=== PATIENT | male | born 1945 | race Caucasian/White ===

== ENCOUNTER 2017-06-10 17:37 | Observation (INO) | payer OTHER ==
--- NOTE | 2017-06-10 17:49 | EDPHY ---
H & P Stated Complaint: fall from standing x 3 today, fever, on chemo and warfarin Time Seen by Provider: 06/10/17 17:48 - Medical/Surgical History Hx Asthma: No Hx Chronic Respiratory Disease: No Hx Diabetes: No Hx Cardiac Disease: No Hx Renal Disease: No Hx Cirrhosis: No Hx Alcoholism: No Hx HIV/AIDS: No Hx Splenectomy or Spleen Trauma: No Other PMH: CLL. hyperlipidemia. hemothorax 03/30 - Social History Smoking Status: Never smoked Constitutional: Initial Vital Signs Temperature (C) 38.3 C 06/10/17 17:42 Heart Rate 90 06/10/17 17:42 Respiratory Rate 18 06/10/17 17:42 Blood Pressure 135/63 H 06/10/17 17:42 O2 Sat (%) 93 06/10/17 17:42 O2 Delivery Mode Room Air Allergies/Adverse Reactions: No Known Allergies Allergy (Verified 11/03/15 20:56) Home Medications: Medication Instructions Recorded Acetaminophen [Tylenol ES 500 mg 500 - 1,000 mg PO Q6 PRN 06/10/17 (*)] Allopurinol [Allopurinol 300 MG 300 mg PO DAILY18 06/10/17 (RX)] Atorvastatin Calcium [Lipitor 10 10 mg PO DAILY 06/10/17 mg (*)] Bendamustine HCl [Bendeka (*)] 150 mg IV Q28D 06/10/17 Carboxymethylcellulose 1% [Refresh 1 tonia EACHEYE DAILY PRN 06/10/17 Celluvisc (*)] Dexamethasone in 0.9 % Sod Chl 10 mg IV Q28D 06/10/17 [Dexamethasone 10 mg/50 ml-Ns] Lidocaine/Prilocaine [Emla Cream 1 tonia TP PRN PRN 06/10/17 (RX)] Oxymetazoline HCl [Afrin Nasal 1 spray EACHNARE HS 06/10/17 [place] (OTC)] Polyethylene Glycol 3350 [Miralax 17 gm PO DAILY PRN 06/10/17 17 gm (*)] Warfarin Sodium [Coumadin 2MG (*)] 1 mg PO DAILY20 06/10/17 Warfarin Sodium [Coumadin 5MG (*)] 5 mg PO DAILY20 06/10/17 riTUXimab [Rituxan] 600 mg IV Q28D 06/10/17 Medical Decision Making - Diagnostics Imaging Results: Imaging Impressions Chest X-Ray 06/10/17 17:54 Impression: 1. A fever source is not identified. 2. See above report for additional findings. Results called and discussed with Hi Hopkins MD on June 10, 2017 at 1920 hours. Imaging: Discussed imaging studies w/ piano instructor Radiologist, I viewed and interpreted images myself ED Course/Re-evaluation: CHIEF COMPLAINT: Multiple falls, fever HISTORY OF PRESENT ILLNESS: The patient is an anticoagulated (Warfarin), immunocompromised 71 y/o male with a history of chronic lymphocytic leukemia complaining of multiple falls and a fever today. He recently finished his first round of a 3-day course of chemotherapy 8 days ago. On , 3 days ago, he saw his doctor who told him to stop taking Zofran and Compazine. Today he started to feel better and began to walk more than usual. While walking back from the mail, he fell 3 times. He felt like he "couldn't control his legs or balance" similar to the sensation of "running down a hill". Denies feeling weak, but felt more uncoordinated. He was able to walk back inside and began to feel sweaty. He took his temperature at home which was 100.8 degrees. Denies balance or coordination problems yesterday. Denies loss of consciousness, weakness, numbness, nausea, vomiting, chest pain, shortness of breath, recent travel. His INR is supposed to be 2-3. Followed by Dr. Reynolds, oncologist ([phone]) REVIEW OF SYSTEMS: A 10 point review of systems was performed and is negative with the exception of the elements mentioned in the history of present illness. PHYSICAL EXAM: HR, BP, O2 Sat, RR. Temp noted General Appearance: Alert, well hydrated, appropriate, and non-toxic appearing. Head: Atraumatic without scalp tenderness or obvious injury Eyes: Pupils equal, round, reactive to light and accommodation, EOMI, no trauma , no injection. Ears: Clear bilaterally, no perforation, normal landmarks Nose: Atraumatic, no rhinorrhea, clear. Throat: There is no erythema or exudates, no lesions, normal tonsils, mucus membranes moist. Neck: Supple, nontender, no lymphadenopathy. Respiratory: No retractions, no distress, no wheezes, and no accessory muscle use. Lungs are clear to auscultation bilaterally. Cardiovascular: Regular rate and rhythm, no murmurs, rubs, or gallops. Good capillary refill all extremities. Gastrointestinal: Abdomen is soft, nontender, non-distended, no masses, no rebound, no guarding, no peritoneal signs. Musculoskeletal: Normal active ROM of all extremities, atraumatic. Neurological: Alert, appropriate, and interactive. The patient has normal DTRs and non-focal cranial nerves, motor, sensory, and cerebellar exam. Skin: No rashes, good turgor, no nodules on palpation. Past medical history: Chronic lymphocytic leukemia, hyperlipidemia, hemothorax and pneumothorax (March 2017) Past surgical history: Denies Family history: Denies Social history: at bedside, lives in [place], retired DIAGNOSTICS/PROCEDURES/CRITICAL CARE TIME: Chest X-ray: Negative Brain MRI w/ and w/o contrast: Negative DIFFERENTIAL DIAGNOSIS: The differential diagnosis for the patient's fever and falls included but was not limited to neutropenic fever, immunocompromised fever, syncope, hypoglycemia , neurogenic causes, pneumonia, urinary tract infection, viral syndrome, meningitis, and sepsis. MEDICAL DECISION MAKING: The patient is an anticoagulated (Warfarin), immunocompromised 71 y/o male with a history of chronic lymphocytic leukemia presenting with multiple falls today and a fever of 38.3 degrees. Labs, chest x-ray, and brain MRI ordered. 2gm Maxipime administered. Patient will most likely need to be admitted for a neutropenic fever; patient and his are comfortable with this plan. 1828: Consulted with hospitalist service, Dr. Pineda accepts admission of this patient. 1913: Patient's sodium is 129. 1919: Spoke with radiologist regarding patient's negative chest x-ray. Brain MRI still pending. 1928: Consulted with Dr. Reynolds, patient's oncologist, regarding this patient. He agrees with my plan for admission. 2127: Spoke with Dr. Leija, radiologist, who reports that the patient's Brain MRI is negative. Patient has been sent to the floor. - Data Points Laboratory Results: Laboratory Results 06/10/17 18:10 06/10/17 18:10 06/10/17 06/10/17 06/10/17 18:25 18:10 18:10 WBC 5.55 10^3/uL 10^3/uL (3.80-9.50) RBC 3.94 10^6/uL L 10^6/uL (4.40-6.38) Hgb 11.4 g/dL L g/dL (13.7-17.5) Hct 33.2 % L % (40.0-51.0) MCV 84.3 fL fL (81.5-99.8) MCH 28.9 pg pg (27.9-34.1) MCHC 34.3 g/dL g/dL (32.4-36.7) RDW 19.3 % H % (11.5-15.2) Plt Count 155 10^3/uL 10^3/uL (150-400) MPV 10.1 fL fL (8.7-11.7) Neut % (Auto) 85.2 % H % (39.3-74.2) Lymph % (Auto) 3.6 % L % (15.0-45.0) Early % (Auto) 8.3 % % (4.5-13.0) Eos % (Auto) 2.2 % % (0.6-7.6) Baso % (Auto) 0.2 % L % (0.3-1.7) Nucleat RBC Rel Count 0.0 % % (0.0-0.2) Absolute Neuts (auto) 4.73 10^3/uL 10^3/uL (1.70-6.50) Absolute Lymphs (auto) 0.20 10^3/uL L 10^3/uL (1.00-3.00) Absolute Monos (auto) 0.46 10^3/uL 10^3/uL (0.30-0.80) Absolute Eos (auto) 0.12 10^3/uL 10^3/uL (0.03-0.40) Absolute Basos (auto) 0.01 10^3/uL L 10^3/uL (0.02-0.10) Absolute Nucleated RBC 0.00 10^3/uL 10^3/uL (0-0.01) Immature Gran % 0.5 % % (0.0-1.1) Immature Gran # 0.03 10^3/uL 10^3/uL (0.00-0.10) PT 20.7 SEC H SEC (12.0-15.0) INR 1.77 H (0.83-1.16) APTT 31.0 SEC SEC (23.0-38.0) VBG Lactic Acid Sodium Potassium Chloride Carbon Dioxide Anion Gap BUN Creatinine Estimated GFR Glucose Calcium Total Bilirubin Urine Color YELLOW Urine Appearance CLEAR Urine pH 6.0 (5.0-7.5) Ur Specific [place] 1.013 (1.002-1.030) Urine Protein NEGATIVE (NEGATIVE) Urine Ketones NEGATIVE (NEGATIVE) Urine Blood NEGATIVE (NEGATIVE) Urine Nitrate NEGATIVE (NEGATIVE) Urine Bilirubin NEGATIVE (NEGATIVE) Urine Urobilinogen 4.0 EU H EU (0.2-1.0) Ur Leukocyte Esterase NEGATIVE (NEGATIVE) Urine Glucose NEGATIVE (NEGATIVE) 06/10/17 06/10/17 18:10 18:10 WBC RBC Hgb Hct MCV MCH MCHC RDW Plt Count MPV Neut % (Auto) Lymph % (Auto) Early % (Auto) Eos % (Auto) Baso % (Auto) Nucleat RBC Rel Count Absolute Neuts (auto) Absolute Lymphs (auto) Absolute Monos (auto) Absolute Eos (auto) Absolute Basos (auto) Absolute Nucleated RBC Immature Gran % Immature Gran # PT INR APTT VBG Lactic Acid 0.5 mmol/L L mmol/L (0.7-2.1) Sodium 129 mEq/L L mEq/L (135-145) Potassium 4.2 mEq/L mEq/L (3.5-5.2) Chloride 93 mEq/L L mEq/L (97-110) Carbon Dioxide 25 mEq/l mEq/l (22-31) Anion Gap 11 mEq/L mEq/L (8-16) BUN 19 mg/dL mg/dL (7-23) Creatinine 0.8 mg/dL mg/dL (0.7-1.3) Estimated GFR > 60 Glucose 97 mg/dL mg/dL (70-100) Calcium 8.1 mg/dL L mg/dL (8.5-10.4) Total Bilirubin 0.9 mg/dL mg/dL (0.1-1.4) Urine Color Urine Appearance Urine pH Ur Specific [place] Urine Protein Urine Ketones Urine Blood Urine Nitrate Urine Bilirubin Urine Urobilinogen Ur Leukocyte Esterase Urine Glucose Medications Given: Discontinued Medications Cefepime HCl 2 gm/ Sterile (Water) 12.5 mls @ 150 mls/hr IV EDNOW ONE PRN Reason: Protocol Stop: 06/10/17 18:30 Last Admin: 06/10/17 19:23 Dose: 12.5 mls Departure - Departure Disposition: [facility] Acute Clinical Impression: Immunocompromised, Multiple falls, Hyponatremia Fever Qualifiers: Fever type: due to other condition Qualified Code(s): R50.81 - Fever presenting with conditions classified elsewhere Condition: Fair Report Scribed for: Hi Hopkins Report Scribed by: Yina Phelps Date of Report: 06/10/17 Time of Report: 17:58
[2017-06-10 18:21] LABS: PLATELET COUNT 155 10^3/uL (150-400)
[2017-06-10] MEDS ORDERED: CEFEPIME HCL 2 GM in STERILE WATER INJ 12.5 ML IV ONE (18:26)
[2017-06-10 18:30] LABS: INR 1.77 (0.83-1.16); PROTIME(PATIENT) 20.7 SEC (12.0-15.0)
[2017-06-10] MEDS ORDERED: GADOBUTROL 10 ML VIAL IVP ONE (20:16)
[2017-06-10] MEDS ORDERED: ACETAMINOPHEN 325 MG TAB PO PRN (22:20)
[2017-06-10] MEDS ORDERED: ONDANSETRON 4 MG/2 ML VIAL IVP PRN (22:20)
[2017-06-10] MEDS ORDERED: ONDANSETRON DISINTEGRATING 4 MG TAB PO PRN (22:20)
[2017-06-10] MEDS ORDERED: WARFARIN SODIUM 1 MG TAB PO SCH (22:45)
[2017-06-10] MEDS ORDERED: WARFARIN SODIUM 5 MG TAB PO SCH (22:45)
--- NOTE | 2017-06-11 00:22 | PDGENHP ---
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 The patient was recently diagnosed with CLL/SLL after a ski accident where he suffered several broken ribs. During that time he was also diagnosed with pulmonary embolism. He last had BR chemo on of last week. On the day of admission the patient went running for about 1.5 hours (he is an avid triathlete). At the tail end of the run, the patient felt unsteady on his feet and suffered several falls. He came to the ED and was also found to have a fever. He denies infectious symptoms. He also denies shortness of breath or chest pain. At the time of my evaluation patient is asymptomatic. History Information - Allergies/Home Medication List Allergies/Adverse Reactions: No Known Allergies Allergy (Verified 11/03/15 20:56) Home Medications: Acetaminophen [Tylenol ES 500 mg (*)] 500 - 1,000 mg PO Q6 PRN 06/10/17 [Last Taken 06/05/17] Allopurinol [Allopurinol 300 MG (RX)] 300 mg PO DAILY18 06/10/17 [Last Taken ] Atorvastatin Calcium [Lipitor 10 mg (*)] 10 mg PO DAILY 06/10/17 [Last Taken ] Bendamustine HCl [Bendeka (*)] 150 mg IV Q28D 06/10/17 [Last Taken 06/02/17] Carboxymethylcellulose 1% [Refresh Celluvisc (*)] 1 tonia EACHEYE DAILY PRN [Last Taken Unknown] Dexamethasone in 0.9 % Sod Chl [Dexamethasone 10 mg/50 ml-Ns] 10 mg IV Q28D [Last Taken 06/02/17] Lidocaine/Prilocaine [Emla Cream (RX)] 1 tonia TP PRN PRN 06/10/17 [Last Taken ] Oxymetazoline HCl [Afrin Nasal [place] (OTC)] 1 spray EACHNARE HS 06/10/17 [Last Taken 06/09/17] Polyethylene Glycol 3350 [Miralax 17 gm (*)] 17 gm PO DAILY PRN 06/10/17 [Last Taken 06/08/17] Warfarin Sodium [Coumadin 2MG (*)] 1 mg PO DAILY20 06/10/17 [Last Taken 06/09/17 ] Warfarin Sodium [Coumadin 5MG (*)] 5 mg PO DAILY20 06/10/17 [Last Taken 06/09/17 ] riTUXimab [Rituxan] 600 mg IV Q28D 06/10/17 [Last Taken 05/31/17] I have personally reviewed and updated: family history, medical history - Past Medical History cancer (CLL/SLL) - Surgical History Reports: hernia repair - Family History Additional family history: Sister has prothrombin gene mutation - Social History Smoking Status: Never smoked Review of Systems Review of Systems: ROS: 10pt was reviewed & negative except for what was stated in HPI & below Physical Exam Physical Exam: Temp Pulse Resp BP Pulse Ox 37.3 C 71 16 132/77 H 91 L 06/10/17 21:25 06/10/17 21:25 06/10/17 21:25 06/10/17 21:25 06/10/17 21:25 Constitutional: no apparent distress, not in pain Eyes: PERRL, EOMI Ears, Nose, Mouth, Throat: moist mucous membranes, no oral mucosal ulcers Cardiovascular: regular rate and rhythym, no murmur, rub, or gallop Respiratory: no respiratory distress, no rales or rhonchi Gastrointestinal: normoactive bowel sounds, soft, non-tender abdomen Skin: warm, normal color Musculoskeletal: full muscle strength, no muscle tenderness Neurologic: AAOx3, CN II-XII Intact Psychiatric: interacting appropriately, not anxious Lab Data & Imaging Review 06/10/17 18:10 06/10/17 18:10 WBC 5.55 10^3/uL (3.80-9.50) 06/10/17 18:10 RBC 3.94 10^6/uL (4.40-6.38) L 06/10/17 18:10 Hgb 11.4 g/dL (13.7-17.5) L 06/10/17 18:10 Hct 33.2 % (40.0-51.0) L 06/10/17 18:10 MCV 84.3 fL (81.5-99.8) 06/10/17 18:10 MCH 28.9 pg (27.9-34.1) 06/10/17 18:10 MCHC 34.3 g/dL (32.4-36.7) 06/10/17 18:10 RDW 19.3 % (11.5-15.2) H 06/10/17 18:10 Plt Count 155 10^3/uL (150-400) 06/10/17 18:10 MPV 10.1 fL (8.7-11.7) 06/10/17 18:10 Neut % (Auto) 85.2 % (39.3-74.2) H 06/10/17 18:10 Lymph % (Auto) 3.6 % (15.0-45.0) L 06/10/17 18:10 [place] % (Auto) 8.3 % (4.5-13.0) 06/10/17 18:10 Eos % (Auto) 2.2 % (0.6-7.6) 06/10/17 18:10 Baso % (Auto) 0.2 % (0.3-1.7) L 06/10/17 18:10 Nucleat RBC Rel Count 0.0 % (0.0-0.2) 06/10/17 18:10 Absolute Neuts (auto) 4.73 10^3/uL (1.70-6.50) 06/10/17 18:10 Absolute Lymphs (auto) 0.20 10^3/uL (1.00-3.00) L 06/10/17 18:10 Absolute Monos (auto) 0.46 10^3/uL (0.30-0.80) 06/10/17 18:10 Absolute Eos (auto) 0.12 10^3/uL (0.03-0.40) 06/10/17 18:10 Absolute Basos (auto) 0.01 10^3/uL (0.02-0.10) L 06/10/17 18:10 Absolute Nucleated RBC 0.00 10^3/uL (0-0.01) 06/10/17 18:10 Immature Gran % 0.5 % (0.0-1.1) 06/10/17 18:10 Immature Gran # 0.03 10^3/uL (0.00-0.10) 06/10/17 18:10 PT 20.7 SEC (12.0-15.0) H 06/10/17 18:10 INR 1.77 (0.83-1.16) H 06/10/17 18:10 APTT 31.0 SEC (23.0-38.0) 06/10/17 18:10 VBG Lactic Acid 0.5 mmol/L (0.7-2.1) L 06/10/17 18:10 Sodium 129 mEq/L (135-145) L 06/10/17 18:10 Potassium 4.2 mEq/L (3.5-5.2) 06/10/17 18:10 Chloride 93 mEq/L (97-110) L 06/10/17 18:10 Carbon Dioxide 25 mEq/l (22-31) 06/10/17 18:10 Anion Gap 11 mEq/L (8-16) 06/10/17 18:10 BUN 19 mg/dL (7-23) 06/10/17 18:10 Creatinine 0.8 mg/dL (0.7-1.3) 06/10/17 18:10 Estimated GFR > 60 06/10/17 18:10 Glucose 97 mg/dL (70-100) 06/10/17 18:10 Calcium 8.1 mg/dL (8.5-10.4) L 06/10/17 18:10 Total Bilirubin 0.9 mg/dL (0.1-1.4) 06/10/17 18:10 Urine Color YELLOW 06/10/17 18:25 Urine Appearance CLEAR 06/10/17 18:25 Urine pH 6.0 (5.0-7.5) 06/10/17 18:25 Ur Specific [place] 1.013 (1.002-1.030) 06/10/17 18:25 Urine Protein NEGATIVE (NEGATIVE) 06/10/17 18:25 Urine Ketones NEGATIVE (NEGATIVE) 06/10/17 18:25 Urine Blood NEGATIVE (NEGATIVE) 06/10/17 18:25 Urine Nitrate NEGATIVE (NEGATIVE) 06/10/17 18:25 Urine Bilirubin NEGATIVE (NEGATIVE) 06/10/17 18:25 Urine Urobilinogen 4.0 EU (0.2-1.0) H 06/10/17 18:25 Ur Leukocyte Esterase NEGATIVE (NEGATIVE) 06/10/17 18:25 Urine Glucose NEGATIVE (NEGATIVE) 06/10/17 18:25 Imaging Review: Imaging Impressions Chest X-Ray 06/10/17 17:54 Impression: 1. A fever source is not identified. 2. See above report for additional findings. Results called and discussed with Hi Hopkins MD on June 10, 2017 at 1920 hours. Brain MRI 06/10/17 19:20 Impression: 1. Negative for intracranial metastatic disease. 2. No evidence for posterior fossa or posterior circulation ischemia. 3. Suspect small vessel ischemic white matter changes. 4. See above report for additional findings. Results called and discussed with Hi Hopkins MD on June 10, 2017 at 2126 hours. Visualized and Interpreted Chest x-ray results: Yes Chest X-Ray results: no infiltrate Assessment & Plan Assessment: 71 yo M w/ hx of CLL/SLL presents with falls, fever, and hyponatremia. Plan: 1. Falls - Patient described transient poor balance and coordination, leading to three falls at the tail end of a 1.5 hour run. An MRI brain performed in the ED revealed no acute abnormalities. It is possible this episode was related to hyponatremia with contribution from overexertion in the setting of recent chemotherapy. INR was subtherapeutic on admission (1.7) but patient denies chest pain, SOB, or leg swelling. - Admit for observation - PT/OT evaluations - Correct hyponatremia, infectious evaluation 2. Fever - No localizing symptoms; patient is not neutropenic. This may be related to his malignancy but merits further investigation. CXR and UA without signs of infection. - S/p cefepime in ED, will observe off of antibiotics - Blood cultures, procalcitonin - GI PCR if loose stools, patient denies currently 3. Hyponatremia - Mild, 129 on admission. Likely related to exertion noting 1.5 hour run on the day of admission. - NS @ 150 mls/hr, recheck BMP in AM 4. 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 Currently undergoing BR regimen chemotherapy. 5. Hx pulmonary embolism - Diagnosed in March, on warfarin. Sister has prothrombin gene mutation. - Continue warfarin, monitor daily INR Diet - Regular Code - Full Ppx - Warfarin Dispo - Admit under observation status
[2017-06-11] MEDS ORDERED: NS 1,000 ML IV SCH (00:45)
[2017-06-11 05:01] LABS: PLATELET COUNT 147 10^3/uL (150-400)
[2017-06-11 07:56] LABS: INR 1.58 (0.83-1.16)
[2017-06-11] MEDS ORDERED: CARBOXYMETHYLCELLULOSE 1% 0.4 ML DROPERETTE EACHEYE PRN (08:43)
[2017-06-11] MEDS ORDERED: POLYETHYLENE GLYCOL 3350 17 GM PKT PO PRN (08:43)
[2017-06-11] MEDS ORDERED: LIDOCAINE/PRILOCAINE 1 EACH CRTUBE TP PRN (08:43)
[2017-06-11 08:56] VITALS: BP 95/53
[2017-06-11] MEDS ORDERED: ATORVASTATIN CALCIUM 10 MG TAB PO SCH (09:00)
--- NOTE | 2017-06-11 09:36 | ASMTCMCOM ---
CM Note CM Note Notes: 06/11/2017 Case Management Note Met pt and Victoria [phone]. Son Hugo Arreola can be reached at [phone]. MOLINA signed. farm equipment operator Dr. Dwayne Ramos. There are no case management d/c needs identified d/t family support and activity levels prior to admission. 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 Pt has not used a home care agency in the past. Case Management d/c poc: independent with follow up as directed. Case Management available if needs change. Date Signed: 06/11/2017 09:36 AM Electronically Signed By:Melissa Hoskins RN
--- NOTE | 2017-06-11 14:00 | ASDISCHSUM ---
Discharge Information Plan Status:Home with No Needs Medically Cleared to Leave:06/11/2017 Discharge Date:06/11/2017 CM D/C Disposition:Home, Routine, Self-Care ADT D/C Disposition:Home, Routine, Self-Care Projected Discharge Date:06/11/2017 Transportation at D/C:Family Discharge Delay Reason: Follow-Up Date:06/11/2017 Discharge Slot: Final Diagnosis: Placement Information Patient Contact Information Contact Name:SUSHIL Relationship: Address:[address] City:[facility] Phone: [facility]/Zip Code:[place] [address] Email: Financial Information Financial Class:Medicare Primary Plan Desc:MEDICARE INPATIENT Primary Plan Number:[id number] Secondary Plan Desc:[employer] Secondary Plan Number:[id number] Assessment Information LACE LACE Length of stay for Answers: Less than 1 day current admission Acuity / Level of Answers: No Care: Did the patient have an inpatient admission? Comorbidities - select Answers: Any tumor (including all that apply lymphoma or leukemia) # of Emergency department Answers: 1-2 visits in the last 6 months Score: 3 Date Signed: 06/11/2017 01:59 PM Electronically Signed By:Melissa Hoskins RN [facility] CM Progress Note CM Note CM Note Notes: 06/11/2017 Case Management Note Met pt and Victoria [phone]. Son Hugo Arreola can be reached at [phone]. JESSE signed. ophthalmic medical assistantMD Dr. Dwayne Ramos. There are no case management d/c needs identified d/t family support and activity levels prior to admission. 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 Pt has not used a home care agency in the past. Case Management d/c poc: independent with follow up as directed. Case Management available if needs change. Date Signed: 06/11/2017 09:36 AM Electronically Signed By:Melissa Hoskins RN Case Management Discharge Plan Note Case Management Discharge Discharge Order Complete? Answers: Yes Patient to Obtain Answers: Independently Medications Transportation Arranged Answers: Family/Friends Family Notified Answers: Yes Notes: in room Discharge Comments Notes: Please see previous case management note. Pt to discharge independent with follow up as directed. Date Signed: 06/11/2017 01:59 PM Electronically Signed By:Melissa Hoskins RN Intervention Information Intervention Type:*MOLINA-Signed Date of Service:06/11/2017 09:33 AM Patient Type:Observation Staff Member:BELLE Hoskins, Melissa Hours: Discipline: Severity: Comment:
--- NOTE | 2017-06-11 14:03 | PDDCSUM ---
Discharge Summary Discharge Summary: DISCHARGE SUMMARY FOLLOW-UP ITEMS: Monitor outpatient serum sodium level and INR Blood cultures pending at time discharge DATE OF ADMISSION: 06/10/2017 DATE OF DISCHARGE: 06/11/2017 DISCHARGE DIAGNOSES: 1. Acute hyponatremia 2. Acute fever CONSULTATIONS: None PROCEDURES / IMAGING: Chest x-ray demonstrating no focal abnormalities Brain MRI demonstrating no metastases, evidence of chronic small vessel disease CHIEF COMPLAINT: Acute fall and fever SUBJECTIVE: Patient is feeling well at time discharge, he is ambulating safely in the hallways without any weakness PHYSICAL EXAM ON DISCHARGE: Systolic blood pressure 110-130, heart rate 70, a febrile overnight last fever was 38.1 at 7:30 p.m. Yesterday, lungs are clear to auscultation bilaterally, heart rhythm is regular without any murmurs, lower extremities are clear of any edema, abdomen is soft nontender nondistended no masses are palpated, no glossial lesions LABS ON DISCHARGE: Creatinine 0.7, serum sodium 135, potassium 4.1, hemoglobin 10.9, platelets [id number], white blood cell count 4500, INR 1.6, procalcitonin 0.45, lactic acid normal, urinalysis normal HOSPITAL COURSE BY PROBLEM: The patient presented with acute mechanical fall in the setting of systemic weakness, increased fatigue, fever. The exact etiology of the fever is uncertain, but it is suspected that he may be experiencing a systemic viral syndrome, as fevers have not been a predominant symptom of his malignancy or his chemotherapy. I suspect the patient has been fighting off a viral syndrome and experienced subsequent acute hyponatremia in the setting of consuming primarily free water as well as his underlying infection. His serum sodium level was 129 on presentation, and it was the most likely cause of his systemic weakness, resulting in his mechanical fall. He received IV fluid hydration and his serum sodium level corrected without any complication, was 135 at time of discharge. He was ruled out for any brain metastases with an MRI, and did not have any evidence of any focal infection on chest imaging or urinalysis. His respiratory viral panel demonstrated no evidence of typical viral infection including influenza, and his blood cultures were no growth today. Of note, his procalcitonin level was mildly elevated at 0.45, but is unclear as to the relevance of this lab value in the setting of underlying hematologic malignancy. His blood cultures are pending at time of discharge and if the result positive, the patient will be contacted. Of note, the patient also had a supratherapeutic INR several days prior to presentation, and held his Coumadin for 1 day, resulting in a subtherapeutic INR on presentation. We provided the patient with additional dose of Coumadin on the day of presentation , notably 8 mg post 6 mg, and then recommended that he resume his regular home dosing of 6 mg daily with regular outpatient INR follow-up. I also extensively counseled the patient is regarding the cause of hyponatremia as well as consuming a more balanced solid content in his daily fluids. He should have repeat serum sodium labs drawn as an outpatient as well. DISCHARGE MEDICATIONS: Please see official discharge medication reconciliation sheet in chart , continue home medications without any changes. DISCHARGE INSTRUCTIONS: Please follow up with Dr. Reynolds as scheduled.
[2017-06-11] MEDS ORDERED: WARFARIN SODIUM 4 MG TAB PO ONE (16:00)
[2017-06-11] MEDS ORDERED: ALLOPURINOL 300 MG TAB PO SCH (18:00)
[2017-06-11] MEDS ORDERED: OXYMETAZOLINE 30 ML NASAL SPRAY EACHNARE SCH (21:00)
== END 2017-06-11 15:08 | disposition home or self-care (01) ==
LOC: OBSVTOIN 18:31 → INTOOBSV 18:31 → F1N 21:22
PROVIDERS: ADMIT Internal Medicine; ATTEND Internal Medicine
DX: E87.1 Hypo-osmolality and hyponatremia (principal); R50.9 Fever, unspecified; C91.10 Chronic lymphocytic leukemia of B-cell type not having achieved remission; Z79.01 Long term (current) use of anticoagulants
CPT/HCPCS: 70553; 71046; 97161; A9585; G0378; G8978; G8979; J0692; J1642; 96374

== ENCOUNTER 2017-06-12 11:27 | Emergency (ER) | payer OTHER ==
--- NOTE | 2017-06-12 12:17 | EDPHY ---
H & P Stated Complaint: fevers/chills, was admitted a few days ago for same Time Seen by Provider: 06/12/17 12:17 - Personal History Current Tetanus/Diphtheria Vaccine: Yes Current Tetanus Diphtheria and Acellular Pertussis (TDAP): Yes Tetanus Vaccine Date: < 10 years - Medical/Surgical History Hx Asthma: No Hx Chronic Respiratory Disease: No Hx Diabetes: No Hx Cardiac Disease: No Hx Renal Disease: No Hx Cirrhosis: No Hx Alcoholism: No Hx HIV/AIDS: No Hx Splenectomy or Spleen Trauma: No Other PMH: CLL. hyperlipidemia. hemothorax 03/30 - Social History Smoking Status: Never smoked Constitutional: Initial Vital Signs Temperature (C) 36.3 C 06/12/17 11:30 Heart Rate 62 06/12/17 11:30 Respiratory Rate 18 06/12/17 11:30 Blood Pressure 102/53 L 06/12/17 11:30 O2 Sat (%) 95 06/12/17 11:30 O2 Delivery Mode Room Air Allergies/Adverse Reactions: No Known Allergies Allergy (Verified 06/12/17 11:30) Home Medications: Medication Instructions Recorded Acetaminophen [Tylenol ES 500 mg 500 - 1,000 mg PO Q6 PRN 06/10/17 (*)] Allopurinol [Allopurinol 300 MG 300 mg PO DAILY18 06/10/17 (RX)] Atorvastatin Calcium [Lipitor 10 10 mg PO DAILY 06/10/17 mg (*)] Bendamustine HCl [Bendeka (*)] 150 mg IV Q28D 06/10/17 Carboxymethylcellulose 1% [Refresh 1 tonia EACHEYE DAILY PRN 06/10/17 Celluvisc (*)] Dexamethasone in 0.9 % Sod Chl 10 mg IV Q28D 06/10/17 [Dexamethasone 10 mg/50 ml-Ns] Lidocaine/Prilocaine [Emla Cream] 1 tonia TP PRN PRN 06/10/17 Oxymetazoline HCl [Afrin Nasal 1 spray EACHNARE HS 06/10/17 [place]] Polyethylene Glycol 3350 [Miralax 17 gm PO DAILY PRN 06/10/17 17 gm (*)] Warfarin Sodium [Coumadin 2MG (*)] 1 mg PO DAILY20 06/10/17 Warfarin Sodium [Coumadin 5MG (*)] 5 mg PO DAILY20 06/10/17 riTUXimab [Rituxan] 600 mg IV Q28D 06/10/17 Ciprofloxacin [Cipro] 500 mg PO BID #20 tab 06/12/17 Medical Decision Making ED Course/Re-evaluation: CHIEF COMPLAINT: Fever HISTORY OF PRESENT ILLNESS: 71-year-old gentleman with CLL. I took care of this patient a couple of days ago when he presented initially with a fever. At that time he was about 1 week out from his 1st chemotherapy treatment. Blood cultures, urine cultures, chest x-ray were performed. The patient received 2 g of cefepime empirically. Patient was admitted to the hospital and several more laboratory studies were checked. He did have some mild hyponatremia at the time also. He was discharged yesterday afternoon with normal labs and normal vital signs and he was afebrile. By last evening he started developing a low- grade temp. The fever was controlled with Tylenol. The fever then went up to approximately 102 about 5-6 hours after last Tylenol dose. He called the oncologist's whose nurse sent him back here. He denies any specific symptoms whatsoever except the fact that when he does have a fever has some chills otherwise he denies any sore throat, ear pain, cough, urinary symptoms her any localizing type symptoms besides just some mild general lethargy. He also states that he noticed a slight rash on his chest. REVIEW OF SYSTEMS: A 10 point review of systems was performed and is negative with the exception of the elements mentioned in the history of present illness. PHYSICAL EXAM: HR, BP, O2 Sat, RR. Temp noted General Appearance: Alert, well hydrated, appropriate, and non-toxic appearing. Head: Atraumatic without scalp tenderness or obvious injury Eyes: Pupils equal, round, reactive to light and accommodation, EOMI, no trauma , no injection. Ears: Clear bilaterally, no perforation, normal landmarks Nose: Atraumatic, no rhinorrhea, clear. Throat: There is no erythema or exudates, no lesions, normal tonsils, mucus membranes moist. Neck: Supple, 2+ carotid upstroke, nontender, no lymphadenopathy. Respiratory: No retractions, no distress, no wheezes, and no accessory muscle use. Lungs are clear to auscultation bilaterally. Cardiovascular: Regular rate and rhythm, no murmurs, rubs, or gallops. Bilateral carotid, radial, dorsalis pedis, and posterior tibial pulses intact. Good capillary refill all extremities. Gastrointestinal: Abdomen is soft, nontender, non-distended, no masses, no rebound, no guarding, no peritoneal signs. Musculoskeletal: Normal active ROM of all extremities, atraumatic. Neurological: Alert, appropriate, and interactive. The patient has normal DTRs and non-focal cranial nerves, motor, sensory, and cerebellar exam. Skin: Mild papular rash on the chest not petechial not peripheral. No rashes, good turgor, no nodules on palpation. Past medical history: CLL Past surgical history: MediPort Family history: Noncontributory Social history: Retired, , does not abuse tobacco drugs or alcohol DIFFERENTIAL DIAGNOSIS: Includes but is not limited to: Viral syndrome, bacterial illness, neutropenic fever, urinary tract infection, respiratory infection, line infection from the [facility]. MEDICAL DECISION MAKING: This patient was admitted a couple of days ago for the same process. He was discharged yesterday as nothing turned up or grew out of his cultures and his laboratory studies were unremarkable. I repeated an i- STAT study here which is unremarkable and his sodium is normal. I spoke with Dr. Donald mayorga in from Oncology and he does not want me to readmit this patient. He would like me to draw blood cultures and start him on ciprofloxacin 500 mg twice daily and send him out. Dr. Denton can will follow this patient closely. I have had a long conversation with the patient and his regarding treatment of the fever and taking the antibiotic and returning here and contacting the oncologist both about the rash which may be related to chemotherapy or related to the antibiotic dose on Monday; and the fever. Departure - Departure Disposition: Home, Routine, Self-Care Clinical Impression: Fever Qualifiers: Fever type: due to other condition Qualified Code(s): R50.81 - Fever presenting with conditions classified elsewhere Condition: Good Instructions: Acetaminophen (By mouth), Fever in Adults (ED) Referrals: Dwayne Ramos MD [Primary Care Provider] - As per Instructions Prescriptions: Ciprofloxacin [Cipro] 500 mg PO BID #20 tab
[2017-06-12] MEDS ORDERED: CIPROFLOXACIN 500 MG TAB PO ONE (13:02)
[2017-06-12 13:57] VITALS: BP 123/78; PULSE 67; RESP 16; TEMP 98.1; O2SAT 97
== END 2017-06-12 13:47 | disposition home or self-care (01) ==
DX: R50.9 Fever, unspecified (principal); Z79.01 Long term (current) use of anticoagulants
CPT/HCPCS: 96374; 99284; J1642; 82947-QW

== ENCOUNTER 2017-06-27 09:42 | Observation (INO) | payer OTHER ==
[2017-06-27] MEDS ORDERED: IOPAMIDOL (ISOVUE 370) 100 ML BTL IV ONE (09:48)
--- NOTE | 2017-06-27 09:55 | EDPHY ---
HPI/HX/ROS/PE/MDM Narrative: CHIEF COMPLAINT: Stroke Alert; aphasia HPI: The patient is an anticoagulated 71 y/o male arriving emergently via EMS as a Stroke Alert with acute onset garbled speech this morning. He was last seen normal at 08:45, 1 hour prior to arrival here. His medical history includes chronic lymphocytic leukemia on chemotherapy, pulmonary embolism, and multiple falls. He was admitted here 06/10/17 after several falls and a brain MRI at that time was negative for metastatic disease or other acute process. Per patient's , this morning she was offering him orange juice for breakfast and "he could not get a coherent sentence out" nor even say "orange juice." EMS describes garbled and inappropriate speech during their contact. No obvious weakness. He denies pain. No report of trauma. REVIEW OF SYSTEMS: Aside from elements discussed in the HPI, a comprehensive 10-point review of systems was reviewed and is negative. PMH: Chronic lymphocytic leukemia; PE - Warfarin; hyperlipidemia; hemothorax/ pneumothorax 2017 SOCIAL HISTORY: Lives in [place]. Retired. . Oncologist: Dr. Donald Reynolds. Prior medical records reviewed including admission 06/10/17 for multiple falls, ED note 06/12/17 for fever. PHYSICAL EXAM: General:Patient is alert, in no acute distress. ENT:Eyes are normal to inspection. ENT inspection normal. Neck: Normal inspection. Full range of motion. Respiratory:No respiratory distress. Breath sounds normal bilaterally. Cardiovascular: Regular rate and rhythm. Strong peripheral pulses. Normal cap refill. Abdomen:The abdomen is nontender to palpation. There are no peritoneal signs. Back: Normal to inspection. No tenderness to palpation. Skin: Normal color. No rash. Warm and dry. Extremities: Normal appearance. Full range of motion. Neuro: Following commands. ED Course: 0942: Met EMS upon arrival and took report. This is an anticoagulated (Warfarin ) 71 y/o male who presents with a 1-hour history of acute onset aphasia. Initial limited exam reveals ___. 0944: Patient sent to CT for noncontrast head CT, head CTA, and neck CTA. Labs and EKG ordered. 0955: Noncontrast head CT is negative for acute process per Dr. Montano, radiologist. 0958: Consulted with [facility]. He will review films and evaluate patient via telemedicine bot upon patient's return from CT. The 12 lead EKG was interpreted by myself. Sinus mechanism rate 71. See hard copy and/or "tracemaster" electronic copy for interpretation. INR 3.14. Hct 33. 1021: CTA head and neck are negative for acute process. 1030: Consulted again with Dr. Gray. He has assessed patient via telemedicine bot and reports patient's symptoms are improving. He is not a TPA candidate due to anticoagulation status and also due to improvement, Dr. Gray does not recommend intervention. Plan for admission. Spoke with hospitalist service. Dr. Goldman accepts admission. 1035: Reevaluated patient and discussed plan. They agree to admission. He agrees he feels his symptoms are improving and he is much more fluent during our conversation. agrees he is much more coherent now. notes he is scheduled for chemo tomorrow in [place]. - Data Points Imaging Results: Imaging Impressions Head CT 06/27/17 09:46 Impression: 1. Negative. No acute intracranial hemorrhage or evidence of acute cortical ischemia. 2. Atrophy and mild white matter disease similar to 3 weeks prior. Findings discussed with Emergency Department physician, Honorio Pineda MD, on 06/27/2017 at 9:55 a.m. Head CTA 06/27/17 09:47 Impression: 1. Normal intracranial arterial circulation. No evidence of embolic disease or aneurysm. 2. Patent venous system. Findings discussed with Emergency Department physician, Honorio Pineda MD, on 06/27/2017 at 10:21 a.m. Neck CTA 06/27/17 09:47 Impression: 1. Widely patent carotid and vertebral arteries. No dissection, occlusion, or flow-limiting stenosis. 2. Small right pleural effusion. Measurement of carotid stenosis is based on the residual internal carotid diameter with [place] Symptomatic Carotid Endarterectomy Trial (NASCET) based stenosis levels. Findings discussed with Emergency Department physician, Gaetano Mata, on 06/27/2017 at 10:21 a.m. Imaging: Discussed imaging studies w/ bilingual call center representative Radiologist, I viewed and interpreted images myself Laboratory Results: Laboratory Results 06/27/17 09:50 06/27/17 06/27/17 06/27/17 09:58 09:50 09:50 POC Hgb 11.2 gm/dL L gm/dL (13.7-17.5) POC Hct 33 % L % (40-51) PT 32.1 SEC H SEC (12.0-15.0) INR 3.14 H (0.83-1.16) POC Sodium 137 mEq/L mEq/L (135-145) Sodium 136 mEq/L mEq/L (135-145) POC Potassium 4.3 mEq/L mEq/L (3.3-5.0) Potassium 4.6 mEq/L mEq/L (3.5-5.2) POC Chloride 98 mEq/L mEq/L (97-110) Chloride 102 mEq/L mEq/L (97-110) Carbon Dioxide 28 mEq/l mEq/l (22-31) Anion Gap 6 mEq/L L mEq/L (8-16) POC BUN 10 mg/dL mg/dL (7-23) BUN 11 mg/dL mg/dL (7-23) Creatinine 0.7 mg/dL mg/dL (0.7-1.3) POC Creatinine 0.7 mg/dL mg/dL (0.7-1.3) Estimated GFR > 60 Glucose 103 mg/dL H mg/dL (70-100) POC Glucose 113 mg/dL H mg/dL (70-100) Calcium 8.4 mg/dL L mg/dL (8.5-10.4) Troponin I < 0.012 ng/mL ng/mL (0.000-0.034) Point of Care Test Results: 06/27/17 09:58 POC Sodium 137 POC Potassium 4.3 POC Chloride 98 POC BUN 10 POC Creatinine 0.7 POC Glucose 113 H General Time Seen by Provider: 06/27/17 09:46 Initial Vital Signs: Initial Vital Signs Temperature (C) 37.0 C 06/27/17 10:16 Heart Rate 77 06/27/17 10:16 Respiratory Rate 16 06/27/17 10:16 Blood Pressure 116/74 06/27/17 10:16 O2 Sat (%) 77 L 06/27/17 10:16 O2 Delivery Mode Room Air Allergies/Adverse Reactions: No Known Allergies Allergy (Verified 06/12/17 11:30) Home Medications: Medication Instructions Recorded Acetaminophen [Tylenol ES 500 mg 500 - 1,000 mg PO Q6 PRN 06/10/17 (*)] Allopurinol [Allopurinol 300 MG 300 mg PO DAILY18 06/10/17 (RX)] Atorvastatin Calcium [Lipitor 10 10 mg PO DAILY 06/10/17 mg (*)] Bendamustine HCl [Bendeka (*)] 150 mg IV Q28D 06/10/17 Carboxymethylcellulose 1% [Refresh 1 tonia EACHEYE DAILY PRN 06/10/17 Celluvisc (*)] Dexamethasone in 0.9 % Sod Chl 10 mg IV Q28D 06/10/17 [Dexamethasone 10 mg/50 ml-Ns] Lidocaine/Prilocaine [Emla Cream] 1 tonia TP PRN PRN 06/10/17 Oxymetazoline HCl [Afrin Nasal 1 spray EACHNARE HS 06/10/17 [place]] Polyethylene Glycol 3350 [Miralax 17 gm PO DAILY PRN 06/10/17 17 gm (*)] Warfarin Sodium [Coumadin 2MG (*)] 1 mg PO DAILY20 06/10/17 Warfarin Sodium [Coumadin 5MG (*)] 5 mg PO DAILY20 06/10/17 riTUXimab [Rituxan] 600 mg IV Q28D 06/10/17 Ciprofloxacin [Cipro] 500 mg PO BID #20 tab 06/12/17 Departure - Departure Disposition: [facility] Inpatient Acute Clinical Impression: CLL (chronic lymphocytic leukemia) TIA (transient ischemic attack) Qualifiers: Transient cerebral ischemia type: other Qualified Code(s): G45.8 - Other transient cerebral ischemic attacks and related syndromes Condition: Fair Report Scribed for: Honorio Pineda Report Scribed by: Maegan Munoz Date of Report: 06/27/17 Time of Report: 09:51 Physician Review and Approval Statement: Portions of this note were transcribed by an ED scribe. I personally performed the history, physical exam, and medical decision making; and confirm the accuracy of the information in the transcribed note.
[2017-06-27 10:28] LABS: INR 3.14 (0.83-1.16); PROTIME(PATIENT) 32.1 SEC (12.0-15.0)
--- NOTE | 2017-06-27 10:28 | CPEKG ---
Heart Rate: 71 RR Interval: 845 P-R Interval: 124 QRSD Interval: 108 QT Interval: 392 QTC Interval: 426 P [place]: 29 QRS [place]: -24 T Wave [place]: 17 EKG Severity - NORMAL ECG - EKG Impression: SINUS RHYTHM Electronically Signed By: Honorio Pineda 27-Jun-2017 14:30:54
[2017-06-27] MEDS ORDERED: ONDANSETRON 4 MG/2 ML VIAL IVP PRN (13:36)
[2017-06-27] MEDS ORDERED: ONDANSETRON DISINTEGRATING 4 MG TAB PO PRN (13:36)
[2017-06-27] MEDS ORDERED: ACETAMINOPHEN 325 MG TAB PO PRN (13:36)
[2017-06-27] MEDS ORDERED: POLYETHYLENE GLYCOL 3350 17 GM PKT PO PRN (13:37)
[2017-06-27] MEDS ORDERED: CARBOXYMETHYLCELLULOSE 1% 0.4 ML DROPERETTE EACHEYE PRN (13:37)
--- NOTE | 2017-06-27 14:11 | GHP ---
[f rep st] HISTORY AND PHYSICAL DATE OF ADMISSION: 06/27/2017 CHIEF COMPLAINT: Difficulty speaking. HISTORY OF PRESENT ILLNESS: This is a 71-year-old man with a history of CLL who presented with diffi culty speaking. This started at 8:45 this morning. It was witnessed by his . Described as sayi ng words that did not make sense together. He had no focal weakness. He has had some worsening conf usion recently but no acute confusion during that episode. He has had some ongoing fevers after star ting chemotherapy. He has also felt much more fatigued recently than normal. He has never had a str payal before. He is taking Lipitor. He was admitted here about 2-1/2 weeks ago for weakness and a fall. At that time, brain MRI was perf ormed which showed nothing acute. He did have some small vessel ischemic white matter changes. He was seen by teleneurology in the emergency department. No tPA was recommended as his symptoms wer e significantly resolving and he is anticoagulated on warfarin. PAST MEDICAL/SURGICAL HISTORY: 1. CLL, status post cycle 03/[address] Reynolds of Rituxan and bendamustine. 2. History of a PE on warfarin. 3. Hyperlipidemia. 4. Fall with rib fractures resulting in hemothorax as well as a pleural effusion which needed to be drained. MEDICATIONS: Please see medication reconciliation. ALLERGIES: No known drug allergies. FAMILY HISTORY: Father had a glioblastoma. There are no strokes in the family. SOCIAL HISTORY: He is accompanied by his . He is an avid triathlete. He does not drink, and he has never smoked. REVIEW OF SYSTEMS: Ten-point review of systems is conducted and is negative except per HPI. PHYSICAL EXAMINATION: VITAL SIGNS: Blood pressure 120/68, heart rate 79, respiration rate 16, sat 9 5% on room air. Temperature is 37.2. GENERAL: The patient is a very pleasant man who is resting co mfortably in no acute distress. HEENT: Shows him to be normocephalic, atraumatic. CARDIOVASCULAR: Regular rate and rhythm. No murmurs, rubs, or gallops. PULMONARY: Lungs clear to auscultation florinda aterally. ABDOMEN: Soft, nontender, nondistended. SKIN: No rash. : No Tobias. NEUROLOGIC: ows him to be alert and oriented x3. Cranial nerves 2-12 are intact. Motor is intact in the upper a nd lower extremities. Sensation to light touch is intact in the upper and lower extremities. He has mild left-sided pronator drift. He is able to repeat simple phrases. LABORATORIES: Hemoglobin is 11.4. INR is 3.1. Basic metabolic panel is normal. Troponin is negati ve. Urinalysis is negative. DATA: 1. Head and neck CT angiogram shows widely patent arteries as well as a small right pleural effusion . 2. ECG, which I personally reviewed and interpreted, shows sinus rhythm. 3. Head CT scan shows nothing acute. IMPRESSION/PLAN: 1. Transient ischemic attack: Suspect small-vessel ischemic rather than embolic given his warfarin use. Will perform typical stroke workup including echocardiogram, telemetry monitoring, check lipids , check A1c, Neurology consult tomorrow. We will defer starting aspirin at this point as he is alrea dy anticoagulated. One of the side effects of bendamustine in post marketing reports is cardiovascul ar disease. 2. Chronic lymphocytic leukemia: He is being treated by Dr. Reynolds on Rituxan and bendamustine. He is on cycle 03/18. 3. Pulmonary embolism: He is slightly supratherapeutic. Will continue his warfarin. 4. Pleural effusion: This is likely residual from his recent trauma. Will not workup further at th is point. 5. Hyperlipidemia: On statin. 6. Code status: He is full code. /[id number]/MODL
--- NOTE | 2017-06-27 16:00 | ECHO ---
[email or web address] [address] [address] Main: [phone] Fax: [email or web address] Echocardiogram Name: RENETTA WHITE MR#: [id number] Study Date: 06/27/2017 Study Time: 01:55 PM Date of : 1945 Age: 71 year(s) Height: 162.6 cm (64 in.) Weight: 60.78 kg (134 lb.) BSA: 1.65 m2 Gender: Male Examination: Echo Indication: tia Image Quality: Adequate Contrast: Requested by: Yemi Goldman BP: 120 mmHg/68 mmHg Heart Rate: Rhythm: Normal sinus rhythm Indication: tia Procedure Staff Patrol Captain: Sara Roldan [facility] Reading Physician: Frederic Galaviz MD Requesting Provider: Conclusions: Normal size left ventricle. Borderline concentric LV hypertrophy. Normal global systolic LV function. EF is 65 %. The left atrium is mildly dilated. There is mild thickening of the mitral valve leaflets. Mild mitral valve regurgitation is present. There is mild thickening of the aortic cusps. Mild to moderate aortic valve regurgitation. No aortic valve stenosis is present. Right ventricular systolic pressure measures 26mmHg. Measurements: Chambers Valvular Assessment AV/MV Valvular Assessment TV/PV Normal Normal Normal Name Value Range Name Value Range Name Value Range Ao Celine (MM): 3.0 cm (2.2 cm-3.7 AV Vmax: 1.34 m/s (1 m/s-1.7 TR Vmax: 2.28 mm/s ( - ) cm) m/s) TR PGmax: 21 mmHg ( - ) IVSd (2D): 1.1 cm (0.6 cm-1.1 AV maxP mmHg ( - ) syst. PAP: 26 mmHg ( - ) cm) LVOT Vmax: 1.06 m/s (0.7 m/s-1.1 PV Vmax: 1.10 m/s (0.6 m/s-0.9 LVDd (2D): 4.8 cm (4.2 cm-5.9 m/s) m/s) cm) AR (PHT): 750 ms ( - ) PV PGmax: 5 mmHg ( - ) LVDs (2D): 3.2 cm (2.1 cm-4 MV E Vmax: 0.47 m/s ( - ) cm) MV A Vmax: 0.50 m/s ( - ) LVPWd (2D): 1.1 cm (0.6 cm-1 MV E/A: 0.94 ( - ) cm) LVEF (BP): 65 % (>=55 %) RVDd(2D): 3.2 cm (1.9 cm-3.8 cmmm) Patient: RENETTA WHITE Study Date: 06/27/2017 Page 1 of 2 01:55 PM Continued Measurements: Chambers Valvular Assessment AV/MV Valvular Assessment TV/PV Name Value Name Value Name Value LADs: 4.2 cm MV DecTime: 236 m/s CVP (est.): 5 mmHg LADs Lon.5 cm MV E' Septal: 0.06 m/s LA Area: 21.7 cm2 MV E/E' Septal: 8.40 LA Volume: 63 ml MV E/E' Lateral: 5.30 LA Volume Index: 38.2 ml/m2 AR Vmax: 3.31 cm/s TAPSE: 2.5 cm RA Area: 11.5 cm2 Additional Vessels Name Value Ao Ascendin.0 cm Findings: Left Ventricle: Normal size left ventricle. Borderline concentric LV hypertrophy. Normal global systolic LV function. EF is 65 %. No regional wall motion abnormality. Normal diastolic LV function. Right Ventricle: Normal size right ventricle. Normal RV function. Left Atrium: The left atrium is mildly dilated. Right Atrium: The right atrium is normal in size. A catheter is discernible in right atrium. Mitral Valve: The mitral valve is normal in appearance and function. There is mild thickening of the mitral valve leaflets. Mild mitral valve regurgitation is present. No mitral stenosis is present. Cannot rule out mitral valve vegetation. Aortic Valve: There is mild thickening of the aortic cusps. Mild to moderate aortic valve regurgitation. No aortic valve stenosis is present. Tricuspid Valve: The tricuspid valve is normal in appearance and function. Mild tricuspid regurgitation is present. The pulmonary artery pressure is normal. Right ventricular systolic pressure measures 26mmHg. Pulmonic Valve: The pulmonic valve is normal in appearance and function. Trivial pulmonic valve regurgitation. Aorta: The aorta is normal. Normal size aortic root measuring 3.0 cm. Normal size ascending aorta measuring 3.0 cm. IVC: The IVC is normal sized. Pericardium: No pericardial effusion. (No Signature Object) Patient: RENETTA WHITE Study Date: 06/27/2017 Page 2 of 2 01:55 PM [id number]
[2017-06-27] MEDS ORDERED: ALLOPURINOL 300 MG TAB PO SCH (18:00)
[2017-06-27] MEDS ORDERED: WARFARIN SODIUM 5 MG TAB PO SCH (20:00)
[2017-06-27] MEDS ORDERED: OXYMETAZOLINE 30 ML NASAL SPRAY EACHNARE SCH (21:00)
[2017-06-28] MEDS ORDERED: ATORVASTATIN CALCIUM 10 MG TAB PO SCH (09:00)
[2017-06-28] MEDS ORDERED: GADOBUTROL 10 ML VIAL IVP ONE (11:34)
--- NOTE | 2017-06-28 14:16 | GCON ---
[f rep st] CONSULTATION DATE OF CONSULTATION: 06/28/2017 CHIEF COMPLAINT: Transient language symptoms. HISTORY OF PRESENT ILLNESS: Mr. 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 He has a diagnosis of CLL and recently finished his first chemotherapy cycle just 4 weeks ago administered by Dr. Reynolds and composed of Rituxan and bendamustine. After he finished chemotherapy, he began having some unexplained symptoms, including hypersomnolence, sleeping 12 hours per day, waxing and waning unexplained low-grade fever, episodic decreased balance, which has resolved, and then the event that occurred yesterday morning, which brought him to the ER. Essentially, he woke up in the morning and was feeling better than he had in a long time. His went to make breakfast for him and called him to the kitchen when it was ready. When he appeared in the kitchen he did not make sense, in terms of his expressive language. He was producing sounds, but they were not coherent words or sentences nor did they have appropriate grammar. The patient thinks he understood his , but is not sure about that either. In fact, the patient is foggy regarding yesterday morning and has amnesia for patches of the morning. He feels that he was more confused. In the background , he has been having some very minimal short-term memory changes with age over the last year, but nothing as dramatic as this. These symptoms lasted for around 2 hours and spontaneously resolved. There were no other provocative factors we could find for this event. There was no focal motor or sensory symptoms with this event. He came in under a stroke alert and had a CT of the head and neck, which were negative for a large vessel occlusion. He was seen by Telemedicine, who did not recommend tPA as his deficits were resolving by the time he was evaluated by Telemedicine, in terms of his overall mental status and language function. In addition, the patient had been diagnosed with a pulmonary embolism in March, after a fall while skiing, around the same time he was diagnosed with leukemia. He was found to have pulmonary emboli and was put on warfarin. When he came into the ER his warfarin was therapeutic with an INR of 3.14. For these reasons, he was not a candidate for IV tPA nor was he a candidate for intervention as there was no large vessel occlusion on angiography of the head or neck. As mentioned above, his symptoms have completely resolved. He was admitted overnight for observation. Echocardiogram showed 65% ejection fraction and the left atrium was mildly dilated. There was no intracardiac thrombus noted. For past medical history, social history, family history, home medications, and allergies see Dr. Goldman's H and P. REVIEW OF SYSTEMS: Only pertinent to the HPI. A 10-point review was done. PHYSICAL EXAMINATION: VITAL SIGNS: Blood pressure is 114/67, temperature 36.8 , respirations 18, and heart rate is 71 and regular. IMPRESSION AND PLAN: 1. Transient neurologic symptoms, resolved. 2. CLL Overall, my impression is that the patient may have had more of an episode of nonspecific encephalopathy versus a focal neurovascular syndrome. This is because he describes patchy amnesia and confusion along with his language symptoms, which would be unusual for a transient ischemic attack. Moreover, upon review of the diffusion-weighted imaging, I do not see any abnormalities, which again would be unusual considering he was symptomatic for around 2 hours. I do not see any metastatic lesions on the contrasted imaging. The MRI has not been interpreted yet by Radiology and we will wait for the finalized radiologist report before making any final recommendations. If the Radiology MRI report is consistent with my review as above, meaning no acute infarct or evidence of metastatic disease, then the presumptive diagnosis would be presumed encephalopathy-type side effects from chemotherapy. He has had other symptoms and signs that may indicate side effects from his chemotherapy regimen, including waxing and waning unexplained fevers, hypersomnolence, fatigue, and decreased balance. I did discuss this with his oncologist, Dr. Reynolds, who agreed that, although very rare, this can happen with this specific chemotherapy regimen. In this scenario, he would discharge home today and follow up with Dr. Reynolds to discuss a different chemotherapy regimen going forward. In regard to general vascular and stroke prophylaxis, the patient is on warfarin for his pulmonary embolism and his INR is 3.0 today, therapeutic. I do not recommend adding any other anticoagulant or antithrombotic medication, based on all of the above, at this time. Once the MRI report is finalized, I will contact the patient via phone in his hospital room to give him my final recommendations. I have also spoken to Dr. Goldman regarding all of the above. seventy total minutes of floor time today reviewing inpatient records, including imaging, laboratory data, direct counseling with the patient, and coordination of care with multiple providers. /[id number]/MODL MTDD
[2017-06-28 15:08] VITALS: BP 107/65
--- NOTE | 2017-06-28 16:02 | GDS ---
[f rep st] DISCHARGE SUMMARY ALL DIAGNOSES: 1. Acute encephalopathy. 2. CLL, undergoing chemotherapy. 3. History of a pulmonary embolism, on warfarin. 4. Hyperlipidemia. HOSPITAL COURSE: A 71-year-old man admitted with episode of garbled speech. Initially thought to be stroke versus TIA. He did not receive tPA. Seen by Neurology, who felt that it is more consistent with global encephalopathy. Notably, he got treatment with Rituxan as well as bendamustine about 1 month ago. He said he had been having ongoing fevers since then. Notably, MRI of his brain did not show any acute stroke or metastatic disease. His oncologist, Dr. Reynolds, was notified. I discussed all these findings with both Dr. GARCIA as well as the patient and his . They will follow up with Dr. Reynolds in [address] Garcia as needed. DISPOSITION: Discharged home with his in stable condition. I recommend that he not drive until at least a week after discharge. I think it is okay for him to be left alone for short periods of time by his . /[id number]/MODL MTDD
--- NOTE | 2017-06-28 16:29 | ASMTCMCOM ---
CM Note CM Note Notes: Pt admitted for possible tia for difficulty speaking, neurology Dr Garcia consulted. Symptom resolved, likely global encephalopathy, potential side effect of chem? Pt oncologist was consulted. SURVEILLANCE INSPECTOR ordered, no eval completed as pt symptoms resolved and advised to notify PCP for outpatient SURVEILLANCE INSPECTOR referral. Pt medically stable for d/c with support of . No CM d/c needs identified. Date Signed: 06/28/2017 04:28 PM Electronically Signed By:KENNY Alcocer
== END 2017-06-28 16:40 | disposition home or self-care (01) ==
LOC: EDUNIT# → F3N 11:45
PROVIDERS: ADMIT Student in an Organized Health Care Education/Training Program; ATTEND Student in an Organized Health Care Education/Training Program
DX: G93.40 Encephalopathy, unspecified (principal); R29.818 Other symptoms and signs involving the nervous system; C91.10 Chronic lymphocytic leukemia of B-cell type not having achieved remission; R29.700 NIHSS score 0; E78.5 Hyperlipidemia, unspecified; J90 Pleural effusion, not elsewhere classified; Z79.01 Long term (current) use of anticoagulants; Z92.21 Personal history of antineoplastic chemotherapy; Z86.711 Personal history of pulmonary embolism; Z91.81 History of falling
CPT/HCPCS: 70450; 70496; 70498; 70553; 93005; 93306; 99285; A9585; G0378; Q9967; 82947-QW